=== PATIENT | male | born 1995 | race African-American/Black ===

== ENCOUNTER 2022-10-16 22:26 | Emergency (ER) | payer OTHER ==
[2022-10-16 23:57] VITALS: TEMP 98.3
[2022-10-17] MEDS ORDERED: NORCO 5/325 MG PO ONE (00:20)
--- NOTE | 2022-10-17 00:22 | ERPHSYRPT ---
- History of Present Illness Time Seen by Provider: 10/16/22 23:16 Historian: patient Exam Limitations: no limitations Patient Subjective Stated Complaint: playing football, got tackled and someone fell on him. now has stabbing pain left lower rib area. pt states movement exacerbates the pain Triage Nursing Assessment: pt splinting left side and trying not to move his arm due to the fact pt states it makes his ribs hurt. no sob reported or observed Physician History: 27-year-old healthy male presented in the ER with chief complaint of left lower anterior chest wall pain after he got tackled while playing football and someone fell on top of him. This happened around 8 PM tonight, moderate intensity sharp pain with movements and deep palpation/twisting. No difficulty breathing otherwise. Denies any abdominal pain nausea vomiting. Aspirin Treatment Today: no aspirin today Allergies/Adverse Reactions: No Known Drug Allergies Allergy (Unverified 10/17/22 00:16) Home Medications: No Reportable Medications [No Reported Medications] 10/17/22 [History] Travel Risk - International Travel Have you traveled outside of the country in past 3 weeks: No - Coronavirus Screening Are you exhibiting any of the following symptoms?: No Close contact with a COVID-19 positive Pt in past 14-21 Days: No - Vaccine Status Have you recieved a Covid-19 vaccination: No - Review of Systems Constitutional: No Symptoms Eyes: No Symptoms Ears, Nose, & Throat: No Symptoms Respiratory: No Symptoms Cardiac: Chest Pain Abdominal/Gastrointestinal: No Symptoms Genitourinary Symptoms: No Symptoms Musculoskeletal: Injury Skin: No Symptoms Neurological: No Symptoms Endocrine: No Symptoms Hematologic/Lymphatic: No Symptoms - Social History Smoking Status: Current every day smoker Exposure to second hand smoke: No Patient Lives Alone: No - Nursing Vital Signs Nursing Vital Signs: Initial Vital Signs Temperature 98.3 F 10/16/22 23:47 Pulse Rate 65 10/16/22 23:47 Respiratory Rate 24 10/16/22 23:47 Blood Pressure 122/77 10/16/22 23:47 O2 Sat by Pulse Oximetry 100 10/16/22 23:47 Pain Scale Pain Intensity 5 - Physical Exam General Appearance: no apparent distress, alert Eye Exam: PERRL/EOMI Ears, Nose, Throat Exam: normal ENT inspection Neck Exam: normal inspection, supple, full range of motion Respiratory Exam: normal breath sounds, chest tenderness (Left lower anterior chest wall with no crepitus. No flail segment.), lungs clear Cardiovascular Exam: regular rate/rhythm, normal heart sounds Gastrointestinal/Abdomen Exam: soft, normal bowel sounds, No tenderness Back Exam: normal inspection, normal range of motion, No vertebral tenderness Extremity Exam: normal inspection, normal range of motion Neurologic Exam: alert, oriented x 3, cooperative Skin Exam: normal color SpO2 Interpretation: normal SpO2: 100 O2 Delivery: Room Air Ordered Tests: Medication Summary Discontinued Medications Generic Name Dose Route Start Last Admin Trade Name Tana PRN Reason Stop Dose Admin Hydrocodone Bitart/Acetaminophen 2 tab 10/17/22 00:20 10/17/22 00:38 Hydrocodone/Apap 5/325 1 Tab Tablet PO 10/17/22 00:21 2 tab STAT ONE Administration Hydrocodone Bitart/Acetaminophen Confirm 10/17/22 00:36 Hydrocodone/Apap 5/325 1 Tab Tablet Administered 10/17/22 00:37 Dose 2 tab .ROUTE .STK-MED ONE - Progress Progress: improved Air Movement: good Progress Note: 10/17/22 00:22 27-year-old healthy male presented in the ER with chief complaint of left lower anterior chest wall pain after he got tackled while playing football and someone fell on top of him. This happened around 8 PM tonight, moderate intensity sharp pain with movements and deep palpation/twisting. No difficulty breathing otherwise. Denies any abdominal pain nausea vomiting. He is given symptomatic treatment for pain. Will obtain imaging. Lungs bilateral clear to auscultation. 10/18/22 0200 patient is feeling better on reevaluation after symptomatic treatment with pain medicine. I have obtain x-rays and reviewed by me which are negative for rib fracture, pneumothorax/hemothorax or any other acute findings. Recommended intermittent ice application, Tylenol/NSAIDs and outpatient follow-up. Discussed signs symptoms of worsening needing return to ER which he seems understanding. Stable for discharge. Blood Culture(s) Obtained: No Antibiotics given: No Counseled pt/family regarding: diagnosis, need for follow-up, rad results Medical Desision Making - Diagnostic Testing Diagnostic test were ordered, analyzed, and reviewed by me: Yes Radiological Interpretation: Interpreted by me, Reviewed by me - Risk of complications The pt has a mod risk of morbidity or mortality based on: Need for prescription drug management - Departure Departure Disposition: Home Clinical Impression: Contusion of rib on left side Condition: Stable Critical Care Time: No Referrals: DOCTOR,NO FAMILY [Primary Care Provider] - Follow up with PCP 1 day Instructions: Bruised Rib
[2022-10-17] MEDS ORDERED: NORCO 5/325 MG ONE (00:36)
[2022-10-17 04:06] VITALS: BP 121/86; PULSE 63; RESP 17
--- NOTE | 2022-10-17 09:19 | XRAY ---
Indication: Left rib pain following football injury. Comparison: None PA/lateral chest demonstrates normal heart, lungs, and bony thorax.
--- NOTE | 2022-10-17 09:20 | XRAY ---
Indication: Left lower rib pain following football injury. Comparison: None 2 view left ribs obtained. No bony, articular, or soft tissue abnormalities.
[2022-10-24 10:47] VITALS: O2SAT 100
== END 2022-10-17 02:20 | disposition home or self-care (01) ==
LOC: ED 22:26
DX: S20.212A Contusion of left front wall of thorax, initial encounter (principal); W03.XXXA Other fall on same level due to collision with another person, initial encounter; Y93.61 Activity, american tackle football; Z28.310 Unvaccinated for COVID-19; Z72.0 Tobacco use
CPT/HCPCS: 71046; 71100; 99283; A9270-GY